=== PATIENT | male | born 1955 | race African-American/Black ===

== ENCOUNTER 2016-10-10 10:06 | Emergency (ER) | payer BC ==
[2016-10-10] MEDS ORDERED: Ibuprofen TAB* 400 MG PO ONE (10:55)
[2016-10-10] MEDS ORDERED: traMADol TAB* 50 MG PO ONE ×2 (10:55→11:51)
[2016-10-10] MEDS ORDERED: Penicillin VK TAB* 250 MG PO ONE ×2 (10:55→11:51)
[2016-10-10 11:33] VITALS: BP 158/85
[2016-10-10] MEDS ORDERED: Ibuprofen TAB* 800 MG PO ONE (11:51)
--- NOTE | 2016-10-27 15:21 | ED ---
Sonal López Edward, scribed for Alfredito Adorno MD on 10/10/16 at 1035 . Complex/Multi-Sys Presentation - HPI Summary HPI Summary: 61 y/o male JOSE c/o sudden onset, severe dental pain s/p 6 teeth pull (top teeth) on 10/06/16 in [place]. Pt states he can still feel a piece of his tooth in one of his sockets causing him severe pain. Associated sx: gum swelling. Denies fever. Pt is from [place] originally and is at [facility] [[email or web address] now for EtOH abuse. Pt is unsure who performed the surgery. - History Of Current Complaint Chief Complaint: EDDentalPain Time Seen by Provider: 10/10/16 10:20 Hx Obtained From: Patient Onset/Duration: Sudden Onset, Lasting Days - 10/06 Timing: Constant Severity Initially: Severe Location: Pain At: - Teeth Associated Signs And Symptoms: Positive: Edema - Gum swelling, Other - Dental pain. Negative: Fever - Allergies/Home Medications Allergies/Adverse Reactions: Allergies Allergy/AdvReac Type Severity Reaction Status Date / Time No Known Allergies Allergy Verified 10/10/16 11:13 PMH/Surg Hx/FS Hx/Imm Hx Previously Healthy: No Endocrine/Hematology History: Reports: Hx Diabetes Infectious Disease History: No Infectious Disease History: Denies: Traveled Outside the [place] in Last 30 Days - Family History Known Family History: Positive: Diabetes - Father - Social History Lives: [facility] - [place] Alcohol Use: Hx of EtOH abuse, at [facility] now Hx Substance Use: Yes Substance Use Type: Reports: Other - Unspecified abuse, at [facility] now Review of Systems Negative: Fever, Chills Negative: Erythema Positive: Dental Pain, Other - Gum swelling. Negative: Sore Throat Negative: Chest Pain Negative: Shortness Of Breath, Cough Negative: Abdominal Pain, Vomiting, Nausea Negative: dysuria, hematuria Negative: Myalgia, Edema Negative: Rash Neurological: Other - No dizziness All Other Systems Reviewed And Are Negative: Yes Physical Exam - Summary Physical Exam Summary: Constitutional: Well-developed, Well-nourished, Alert. (-) Distressed Skin: Warm, Dry Dental: Inflamed maxillary gums of all molars s/p extraction. At tooth number 6 there is a fragment of the tooth still in the socket probably left behind s/p extraction. No trismus, no Antwon's angina, and no drainable abscess. HENT: Normocephalic; Atraumatic Eyes: Conjunctiva normal Neck: Musculoskeletal ROM normal neck. (-) JVD, (-) Stridor, (-) Tracheal deviation Cardio: Rhythm regular, rate normal, Heart sounds normal; Intact distal pulses; The pedal pulses are 2+ and symmetric. Radial pulses are 2+ and symmetric. (-) Murmur Pulmonary/Chest wall: Effort normal. (-) Respiratory distress, (-) Wheezes, (-) Rales Abd: Soft, (-) Tenderness, (-) Distension, (-) Guarding, (-) Rebound Musculoskeletal: (-) Edema Lymph: (-) Cervical adenopathy Neuro: Alert, Oriented x3 Psych: Mood and affect Normal Triage Information Reviewed: Yes Vital Signs On Initial Exam: Initial Vitals Temp Pulse Resp BP Pulse Ox 97.9 F 64 20 155/88 97 10/10/16 10:27 10/10/16 10:27 10/10/16 10:27 10/10/16 10:27 10/10/16 10:27 Vital Signs Reviewed: Yes Diagnostics - Vital Signs Vital Signs Temp Pulse Resp BP Pulse Ox 10/10/16 10:27 97.9 F 64 20 155/88 97 - Laboratory Lab Statement: Any lab studies that have been ordered have been reviewed, and results considered in the medical decision making process. Complex Multi-Symp Course/Dx Assessment/Plan: 61 y/o male BIBA c/o severe dental pain s/p 6 teeth pull (top teeth) on 10/06/16 in [place]. Pt states he can still feel a piece of his tooth in one of his sockets causing him severe pain. Denies fever. Pt is from [place] originally and is at [facility] now for EtOH abuse. Pt will be discharged home with f/u with [facility] ([phone]). - Diagnoses Provider Diagnoses: Postoperative pain, dental fracture Discharge - Discharge Plan Condition: Stable Disposition: HOME Prescriptions: Ibuprofen TAB* [Motrin TAB* 800 MG] 800 mg PO Q6H 7 Days Penicillin VK TAB* [Penicillin VK 250 mg Tab*] 500 mg PO QID #40 tab traMADol TAB* [Ultram*] 50 mg PO Q6HR PRN #15 tab MDD 4 PRN Reason: Pain - Moderate To Severe Referrals: [facility], [Primary Care Provider] - Additional Instructions: Please f/u in 2-3 days with: [facility] [phone] The documentation as recorded by the scribeSonal Edward accurately reflects the service I personally performed and the decisions made by me, Alfredito Adorno MD.
== END 2016-10-10 12:22 | disposition home or self-care (01) ==
LOC: ED 10:06
DX: K08.89 Other specified disorders of teeth and supporting structures (principal); G89.18 Other acute postprocedural pain
CPT/HCPCS: 99283; A9270-GY